=== PATIENT | male | born 1975 | race Caucasian/White ===

== ENCOUNTER 2017-04-15 14:08 | Observation (INO) ==
[2017-04-15] MEDS ORDERED: ZALEPLON 5 MG CAPSULE PO PRN (16:02)
[2017-04-15] MEDS ORDERED: ACETAMINOPHEN 325 MG TABLET PO PRN (16:02)
[2017-04-15] MEDS ORDERED: ONDANSETRON 4 MG/2 ML VIAL IV PRN (16:07)
--- NOTE | 2017-04-15 16:11 | Hospitalist History & Physical ---
<Todd Mishra - Last Filed: 04/15/17 16:02> Assessment and Plan - Time spent with patient Time spent with patient: Greater than 30 minutes (1) Acute pancreatitis Status: Resolved Assessment and plan: Patient presents with suspicion of recurrent acute pancreatitis. Will obtain blood work to include CBC, CMP, hemoglobin A1c, lipase, lipid panel and magnesium. Clear liquid diet. Analgesics including [place] and Demerol. IV fluids. Current Visit: No (2) History of pancreatic cancer Status: Acute Assessment and plan: Patient reports a history of pancreatic cancer in 2012 that is in remission. He notes this to be the cause of his pancreatitis flares. Patient is followed by oncologist at [facility] in [place]. Current Visit: No (3) Opiate dependence Status: Acute Assessment and plan: Patient has an extensive history of opioids on record. Will monitor dose administration. Current Visit: No (4) Anxiety Status: Acute Assessment and plan: Patient takes Zoloft regularly. 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 Current Visit: Yes History of Present Illness Chief complaint: pancreatitis History of present illness: Mr. Velazquez is a 41 year old white male with a past medical history significant for pancreatic carcinoma, cholecystectomy, recurrent pancreatitis who presents to day as a direct admit from Dr. Jose Van's office for further evaluation of pancreatitis. The patient reports that he has been experiencing nausea/vomiting and epigastric pain x1 week but has been putting off coming to the hospital. He was seen in Dr. Van's office this morning and reported that even the smell of food will make him sick to his stomach. The pain has been getting progressively worse, his appetite has dramatically decreased, and admission is inevitable. Per Dr. Van's note, the patient was just seen in his office last week and the liver enzymes were negative, however he did not check a lipase or amylase level at that time. On exam, the patient denies chest pain, cough, diarrhea, shortness of breath, fatigue, BRAUN, dizziness, palpitations , GERD, syncope and weakness. He tells us that he is allergic to morphine and dilaudid; instead opting for demerol for pain management. He is admitted to the hospital medicine service for further evaluation and treatment. Patient is a full code. Home medications have been reviewed and well be reconciled once confirmed in the system. Home Medications Medication Instructions Recorded Confirmed Type Lansoprazole 30 mg PO BEDTIME 05/12/16 04/15/17 History Dronabinol 5 mg PO BID PRN 07/21/16 04/15/17 History HYDROcodone/ACETAMIN 10-325 [[place] 1 tablet PO TID PRN 07/21/16 04/15/17 History 10-325] Pregabalin [Lyrica] 200 mg PO BID 07/21/16 04/15/17 History Sertraline [Zoloft] 100 mg PO BEDTIME 07/21/16 04/15/17 History Oxycodone HCl 30 mg PO Q6H PRN 07/22/16 04/15/17 History Promethazine Tab [Phenergan Tab] 25 mg PO TID PRN 07/22/16 04/15/17 History Celecoxib 200 mg PO BID 04/15/17 04/15/17 History Duloxetine HCl [Duloxetine] 60 mg PO BEDTIME 04/15/17 04/15/17 History Memantine HCl [Namenda] 10 mg PO BEDTIME 04/15/17 04/15/17 History Mexiletine [Mexitil] 150 mg PO BID PRN 04/15/17 04/15/17 History Allergies Allergy/AdvReac Type Severity Reaction Status Date / Time Hydromorphone [From Dilaudid] AdvReac Nausea Verified 01/16/16 16:35 morphine AdvReac Nausea Verified 01/16/16 16:35 Medical,Surgical,& Family Hx - Medical History Cardio: No history of: Hypertension Neurology: No history of: Seizures Endocrine: No history of: Diabetes Mellitus (IDDM), Diabetes Mellitus (NIDDM) Respiratory: No history of: COPD Gastrointestinal: History of: GERD, Pancreatitis, Gastrointestinal Cancer ( Pancreatic CA) Musculoskeletal: History of: Musculoskeletal Problems (left leg neuropathy) Other: History of: Cancer (pancreatic ca) - Surgical History HEENT Surgeries: Surgical HX of: Tonsilectomy & Adenoidectomy Abdominal Surgeries: Surgical HX of: Abdominal Surgery ([place] July 2013), Cholecystectomy (February 2013) - Family History Family History: Reports;: Family Cancer, Family Heart Disease - Social History Smoking Status: Never smoker Frequency of Alcohol Use: None Type of Drug Use: None Marital Status: Lives With:: Spouse Functional capacity: independent ambulation - Constitutional Constitutional: Present: anorexia. Absent: chills, fatigue, frequent falls, headache(s), weakness - EENT Eyes: Absent: blurry vision, loss of vision Ears: Absent: decreased hearing, ear pain Nose, mouth and throat: Absent: headache(s), hoarseness, sore throat, vertigo - Cardiovascular Cardiovascular: Absent: chest pain at rest, diaphoresis, dyspnea, dyspnea on exertion, edema, palpitations - Respiratory Respiratory: Absent: cough, dyspnea, dyspnea on exertion - Gastrointestinal Gastrointestinal: Present: abdominal pain, nausea, vomiting. Absent: change in bowel habits, constipation, diarrhea - Genitourinary Genitourinary: Absent: difficulty urinating, dysuria, hematuria - Neurological Neurological: Absent: abnormal gait, abnormal speech, confusion, dizziness, syncope - Psychiatric Psychiatric: Absent: anxiety, depression - Endocrine Endocrine: Absent: cold intolerance, heat intolerance - Hematologic/Lymphatic Hematologic/Lymphatic: Absent: easy bleeding, easy bruising Exam - Constitutional Exam: General appearance: normal weight, no acute distress - Head Head exam: Present: normocephalic, atraumatic - Eye Eye exam: Present: EOMI. Absent: conjunctival injection, nystagmus Pupils: Present: MARIO, normal accommodation - ENT ENT exam: Present: normal exam, normal external ear exam - Neck Neck exam: Present: normal inspection. Absent: lymphadenopathy, tenderness, thyromegaly - Respiratory Respiratory exam: Present: clear to auscultation bilaterally. Absent: rales, rhonchi, wheezes - Cardiovascular Cardiovascular exam: Present: regular rate and rhythm. Absent: carotid bruit, gallop, rubs - GI/Abdominal GI/Abdominal exam: Present: normal bowel sounds, soft, nontender to palpation. Absent: ascites, distended, mass - Extremities Exam Extremities exam: Present: normal inspection, normal capillary refill. Absent: edema - Back Exam Back exam: Absent: CVA tenderness (L), CVA tenderness (R) - Neurological Exam Neurological exam: Present: alert, oriented X3, CN II-XII intact, reflexes normal - Psychiatric Psychiatric exam: Present: normal affect, normal mood - Skin Skin exam: Present: normal color, warm, dry <White,Jaqui R - Last Filed: 04/15/17 18:04> Assessment and Plan (1) Acute pancreatitis Status: Resolved Current Visit: No (2) Opiate dependence Status: Acute Assessment and plan: Patient on alot of addictive medications. Chronic pancreatitis should not be treated with narcotics Current Visit: No History of Present Illness History of present illness: Mr. Velazquez is a 41 year old male. Patient seen and examined. Reports nausea and vomiting with dilaudid and morphine yet he take oxycodone as an outpatient. Reports can take demerol. Hasnt been in the hospital alot. Will give demerol even though I try to avoid it due to addiction potential. Patient does not look very uncomfortable Exam - Constitutional Vitals: Period Temp Pulse Resp BP Sys/[place] Pulse Ox Last 24 Hr 97.6 F 76 20 136/85 94 Results - Labs CBC & BMP: 04/15/17 16:35 04/15/17 16:35 Lab Results: I have reviewed the past 24 hour labs Labs: lipase 45 - Diagnostic Findings Procedure: Chest x-ray: report reviewed by me (nothing acute )
[2017-04-15] MEDS ORDERED: ENOXAPARIN 40 MG/0.4 ML SYRINGE SUBCUT SCH (16:30)
[2017-04-15 16:45] LABS: Basophils # 0.1 10*3/uL (0.0-0.2); Eosinophils # 0.3 10*3/uL (0.0-0.87); Eosinophils % 5.8 % (0.00-10.9); Hematocrit 38.4 VOL% (42.0-52.0); Hemoglobin 13.2 GM/DL (14.0-18.0); Immature Granulocytes % 0.2 %; Immature Granulocytes Absolute 0.01 #; Lymphocytes # 1.7 10*3/uL (1.4-4.0); Lymphocytes % 33.2 % (21.2-54.2); Mean Corpuscular HGB Conc 34.4 GM/DL (32-36); Mean Corpuscular Hemoglobin 31 PG (27-34); Mean Corpuscular Volume 90.8 FL (87-102); Mean Platelet Volume 10.4 FL (9.6-12.0); Monocytes # 0.5 10*3/uL (0.11-0.8); Monocytes % 8.9 % (1.7-12.7); Neutrophils # 2.6 10*3/uL (1.4-7.4); Neutrophils % 50.9 % (38.7-73.9); Platelet Count 112 T/CUMM (130-400); Red Blood Count 4.23 MC/CUMM (3.8-5.5); Red Cell Distribution Width 12.9 % (9.3-17.3); White Blood Count 5.2 T/CUMM (4-12)
[2017-04-15] MEDS: MEPERIDINE 50 MG/1 ML VIAL IV PRN ×2 (16:49→20:19)
[2017-04-15] MEDS: SODIUM CHLORIDE 0.9% 1,000 ML IV SCH ×2 (16:54→23:58)
[2017-04-15 17:05] LABS: Albumin 3.5 G/DL (3.4-5.0); Bilirubin,Total 0.4 MG/DL (0.2-1.0); Calcium 8.6 MG/DL (8.5-10.1); Magnesium 2.1 MG/DL (1.8-2.4); Osmolality,Calculated 284.1 MOS/KG (273-304); Potassium 4.1 MMOL/L (3.5-5.1)
--- NOTE | 2017-04-15 17:44 | XRay Report ---
History: Shortness of breath Date: 04/15/2017 Study: Chest x-ray PA and lateral Comparison exam: August 28, 2016 chest x-ray The cardiomediastinal silhouette and pulmonary vasculature are unchanged. The lungs and pleural spaces are clear. There is no pleural effusion. The osseous structures are similar. Surgical clips overlie the upper central and right upper abdomen. Impression: No acute cardiomegaly process. No significant interval change from the previous study PROCEDURE INTERPRETED AT [facility] DEPARTMENT OF RADIOLOGY Final Report Signed by: Dr. Isabel Rangel
[2017-04-15] MEDS: PREGABALIN 100 MG CAPSULE PO SCH (20:19)
[2017-04-15] MEDS: SERTRALINE 100 MG TABLET PO SCH (20:19)
[2017-04-15 20:24] LABS: Apearance,Urine CLEAR (Clear); Bilirubin,Urine Small mg/dL (Negative); Blood, Urine Negative (Negative); Glucose,Urine (UA) Negative (Negative); Hyaline Casts,Urine 10 /LPF (0-3); Ketones,Urine 5 mg/dL (Negative); Mucus,Urine Many /LPF (Occasional); Nitrite,Urine Negative (Negative); Protein,Urine Negative; RBC,Urine 1 /HPF (0-4); Squamous Epithelial Cell,Urine Occasional /HPF (0-10); Urine Color Dark yellow (Yellow); Urine Specific Gravity 1.029 (1.001-1.035); WBC,Urine <1 /HPF (0-6)
[2017-04-15] MEDS ORDERED: PANTOPRAZOLE 40 MG TABLET PO SCH (21:00)
[2017-04-15 22:11] LABS: Barbiturates Screen,Urine Negative (Negative); Benzodiazepines Screen,Urine Negative (Negative); Cannabinoid Screen,Urine Positive (Negative); Opiate Screen,Urine Positive (Negative); Phencyclidine Screen,Urine Negative (Negative)
[2017-04-16] MEDS: MEPERIDINE 50 MG/1 ML VIAL IV PRN ×7 (00:10→21:52)
[2017-04-16 03:47] LABS: Risk Ratio 4.4; VLDL CHOLESTEROL 30.6 MG/DL
[2017-04-16] MEDS: SODIUM CHLORIDE 0.9% 1,000 ML IV SCH ×6 (04:43→23:20)
[2017-04-16] MEDS: PREGABALIN 100 MG CAPSULE PO SCH ×2 (09:49→20:50)
--- NOTE | 2017-04-16 13:53 | Hospitalist Progress Note ---
Assessment and Plan (1) Acute pancreatitis Status: Resolved Assessment and plan: cont demerol, imformed him of UDS Current Visit: No (2) Opiate dependence Status: Acute Assessment and plan: would recommend wean off Current Visit: No (3) Thrombocytopenia Status: Acute Assessment and plan: PTT, PT, Dimer, Fibrinogen, US liver Current Visit: Yes Hospitalist: Subjective Interval history: Patient feels okay today. He wanted to increase his Demerol to every 2 hours but I refused. Patient has [place] that will help bridge the gap. Patient also had a positive drug screen for opiates, amphetamines and marijuana Exam - Constitutional Vitals: Period Temp Pulse Resp BP Sys/[place] Pulse Ox Last 24 Hr 97.3 F-98.4 F 60-76 18-20 105-150/73-93 94-99 Exam: Heart Rate-[RRR] Lungs-[CTAB] GI-[+bs soft, tender] Ext-[no edema] Neuro [Motor 5/5], [alert and oriented times 3] psych [normal mood and affect] General [no acute distress] Results - Labs CBC & BMP: 04/15/17 16:35 04/15/17 16:35 Lab Results: I have reviewed the past 24 hour labs - Diagnostic Findings Procedure: Chest x-ray: report reviewed by me (negative)
[2017-04-16] MEDS: FAMOTIDINE 20 MG TABLET PO SCH ×2 (14:15→20:51)
[2017-04-16 15:02] LABS: D-Dimer <= 0.5 MG/L FEU; Fibrinogen Quant Value 193 MG% (200-400); PT Patient Result 10.7 SECS; Partial Thromboplastin Time 25.4 SECS (0-40)
[2017-04-16] MEDS: SERTRALINE 100 MG TABLET PO SCH (20:51)
[2017-04-17] MEDS: MEPERIDINE 50 MG/1 ML VIAL IV PRN ×5 (04:00→20:53)
[2017-04-17] MEDS: SODIUM CHLORIDE 0.9% 1,000 ML IV SCH ×4 (05:49→20:54)
[2017-04-17 06:35] LABS: Basophils % 0.7 % (0.0-0.8); Eosinophils # 0.3 10*3/uL (0.0-0.87); Hematocrit 37.7 VOL% (42.0-52.0); Hemoglobin 12.6 GM/DL (14.0-18.0); Immature Granulocytes % 0.2 %; Immature Granulocytes Absolute 0.01 #; Lymphocytes # 1.4 10*3/uL (1.4-4.0); Lymphocytes % 32.4 % (21.2-54.2); Mean Corpuscular HGB Conc 33.4 GM/DL (32-36); Mean Corpuscular Hemoglobin 31 PG (27-34); Mean Corpuscular Volume 92.2 FL (87-102); Mean Platelet Volume 11.3 FL (9.6-12.0); Monocytes # 0.4 10*3/uL (0.11-0.8); Monocytes % 9.6 % (1.7-12.7); Neutrophils # 2.1 10*3/uL (1.4-7.4); Neutrophils % 51.1 % (38.7-73.9); Red Blood Count 4.09 MC/CUMM (3.8-5.5); Red Cell Distribution Width 13.1 % (9.3-17.3); White Blood Count 4.2 T/CUMM (4-12)
[2017-04-17 06:43] LABS: Platelet Count 97 T/CUMM (130-400)
[2017-04-17 07:09] LABS: Anisocytosis 1+; Platelet Estimate Decreased
--- NOTE | 2017-04-17 07:54 | Ultrasound Report ---
US liver Indication: Cirrhosis Comparison: None. Technique: Using transcutaneous probe, ultrasound imaging of the right upper quadrant was performed. Ultrasound images were captured and stored. Imaged structures include the liver, gallbladder, pancreas, right kidney, aorta, and inferior vena cava. Findings: Pancreas is not well-visualized secondary to bowel gas. The small portion of the visualized pancreatic body demonstrates no mass or ductal dilatation. The liver measures approximately 14 cm in craniocaudal dimension. Echotexture of the hepatic parenchyma is diffusely increased compared to the right renal cortex. Color flow is present within the interrogated portal venous segments. Spectral flow within the main portal vein is in the correct direction and has a somewhat pulsatile waveform. Color flow is present within the interrogated hepatic venous segments. Common bile duct is enlarged measuring 7 mm. Echogenic foci with posterior shadowing in the region of the gallbladder fossa may reflect surgical clips. Gallbladder surgically absent. Right kidney measures 10.8 cm in craniocaudal dimension. The aorta and inferior vena cava are not identified secondary to bowel gas. Impression: 1. There is no evidence of focal hepatic mass or findings to suggest portal venous hypertension. Minimally pulsatile waveform is present within the main portal vein. 04/17/2017 7:47 AM PROCEDURE INTERPRETED AT [facility] DEPARTMENT OF RADIOLOGY Final Report Signed by: Dr. Mariano Rahman
[2017-04-17] MEDS: PREGABALIN 100 MG CAPSULE PO SCH ×2 (08:14→20:53)
[2017-04-17] MEDS: FAMOTIDINE 20 MG TABLET PO SCH ×2 (08:15→20:53)
[2017-04-17] MEDS ORDERED: oxyCODONE IR 5 MG TABLET PO PRN (10:09)
[2017-04-17] MEDS ORDERED: MEXILETINE 150 MG CAPSULE PO PRN (10:09)
--- NOTE | 2017-04-17 13:47 | Hospitalist Progress Note ---
Assessment and Plan (1) Acute pancreatitis Status: Resolved Assessment and plan: cont demerol,advance diet to full liquids Current Visit: No (2) Opiate dependence Status: Acute Assessment and plan: restarted oxycodone Current Visit: No (3) Thrombocytopenia Status: Acute Assessment and plan: labs normal, plt down to 97 on cbc from today, us of liver okay Current Visit: Yes Hospitalist: Subjective Interval history: advance to full liquids, UDS repeat, restart namenda given to him for help with pain, restart oxycodone Exam - Constitutional Vitals: Period Temp Pulse Resp BP Sys/[place] Pulse Ox Last 24 Hr 97.4 F-98.4 F 58-75 18-20 111-132/65-86 95-99 Exam: Heart Rate-[RRR] Lungs-[CTAB] GI-[+bs soft, epigastric tender] Ext-[no edema] Neuro [Motor 5/5], [alert and oriented times 3] psych [normal mood and affect] General [no acute distress] Results - Labs CBC & BMP: 04/17/17 05:54 04/15/17 16:35 Lab Results: I have reviewed the past 24 hour labs
[2017-04-17 16:09] LABS: Barbiturates Screen,Urine Negative (Negative); Benzodiazepines Screen,Urine Negative (Negative); Cannabinoid Screen,Urine Negative (Negative); Opiate Screen,Urine Positive (Negative); Phencyclidine Screen,Urine Negative (Negative)
[2017-04-17] MEDS: SERTRALINE 100 MG TABLET PO SCH (20:52)
[2017-04-17] MEDS ORDERED: DULoxetine 30 MG CAPSULE PO SCH (21:00)
[2017-04-17] MEDS ORDERED: MEMANTINE 10 MG TABLET PO SCH (21:00)
[2017-04-18] MEDS: MEPERIDINE 50 MG/1 ML VIAL IV PRN ×3 (01:02→08:53)
[2017-04-18] MEDS: SODIUM CHLORIDE 0.9% 1,000 ML IV SCH (04:07)
[2017-04-18] MEDS: PREGABALIN 100 MG CAPSULE PO SCH (08:53)
[2017-04-18] MEDS: FAMOTIDINE 20 MG TABLET PO SCH (08:53)
--- NOTE | 2017-04-18 09:24 | Discharge Summary ---
<Todd Mishra - Last Filed: 04/18/17 09:14> Hospital Course - Hospital Course Hospital Course: Mr. Velazquez is a 41 year old white male with a past medical history significant for pancreatic carcinoma, cholecystectomy, recurrent pancreatitis who presented on 04/15/17 as a direct admit from Dr. Jose Van's office for further evaluation of pancreatitis. The patient reported that he had been experiencing nausea/vomiting and epigastric pain x1 week. He was admitted to the hospital medicine service and received demerol every 3 hours. His lipase was low. We restarted his home pain meds when he didnt receive relief. His platelets were low but no evidence of cirrhosis was found. We have advanced his diet and he will be discharged home to see his pain specialist Dr. Finnegan and Dr. Van. Diagnosis - Discharge Diagnosis (1) History of pancreatic cancer Status: Acute (2) Opiate dependence Status: Acute (3) Anxiety Status: Acute (4) Peripheral neuropathy due to chemotherapy Status: Acute Discharge Plan - Discharge Data Disposition: Disch To Home/Self Care - Discharge Medications Continue Lansoprazole 30 mg PO BEDTIME Dronabinol 5 mg PO BID PRN PRN Reason: Nausea Sertraline [Zoloft] 100 mg PO BEDTIME Pregabalin [Lyrica] 200 mg PO BID HYDROcodone/ACETAMIN 10-325 [[place] 10-325] 1 tablet PO TID PRN PRN Reason: Pain Oxycodone HCl 30 mg PO Q6H PRN PRN Reason: Pain Promethazine Tab [Phenergan Tab] 25 mg PO TID PRN PRN Reason: Nausea Memantine HCl [Namenda] 10 mg PO BEDTIME Celecoxib 200 mg PO BID Mexiletine [Mexitil] 150 mg PO BID PRN PRN Reason: Pain Moderate To Severe (4-10) Duloxetine HCl [Duloxetine] 60 mg PO BEDTIME - Follow Up or Referral Follow Up: Jose Van MD [Primary Care Provider] - 2 Weeks Dennys Finnegan MD [Physician] - 1 Week (I believe this is his pain doctor) - Forms/Instructions Exam - Constitutional Vitals: Period Temp Pulse Resp BP Sys/[place] Pulse Ox Last 24 Hr 97.1 F-98.0 F 55-77 18-20 115-136/70-96 94-99 Discharge Results Labs on day of discharge: Labs from last 24 hours 04/17/17 15:31 Urine Opiates Screen Positive H Ur Barbiturates Screen Negative Ur Phencyclidine Scrn Negative U Amphetamine/Methamph Negative U Benzodiazepines Scrn Negative U Cocaine Metab Screen Negative U Cannabinoids Screen Negative DS: Provider Date of admission: 04/15/17 15:30 Primary care physician: Jose Van MD Attending physician on admission: Jaqui Yarbrough MD Discharging clinician: Todd BALL Expected date of discharge: 04/18/17 <Jaqui Yarbrough - Last Filed: 04/18/17 11:17> Hospital Course - Time spent with patient Time with patient DS: Less than 30 minutes (25 min) Diagnosis - Discharge Diagnosis (1) Acute pancreatitis Status: Resolved (2) Opiate dependence Status: Acute (3) Thrombocytopenia Status: Acute Discharge Plan - Discharge Data Condition at Discharge: Stable Discharge Diet: other (soft ) Activity: resume usual activities as tolerated Hygiene: no restrictions Weight Bearing at Discharge: full weight bearing Exam - Constitutional General appearance: normal weight, no acute distress - Respiratory Respiratory exam: Present: clear to auscultation bilaterally. Absent: rhonchi, wheezes - Cardiovascular Cardiovascular exam: Present: regular rate and rhythm. Absent: systolic murmur - GI/Abdominal GI/Abdominal exam: Present: normal bowel sounds, soft. Absent: tenderness - Extremities Exam Extremities exam: Present: normal inspection, normal capillary refill - Neurological Exam Neurological exam: Present: alert, oriented X3 - Psychiatric Psychiatric exam: Present: normal affect, normal mood
[2017-04-18 11:33] VITALS: BP 121/76
== END 2017-04-18 12:20 | disposition home or self-care (01) ==
LOC: N.5E 15:30 → INTOOBSV 15:30
PROVIDERS: ADMIT Internal Medicine; ATTEND Internal Medicine

== ENCOUNTER 2017-08-16 00:32 | Inpatient (IN) ==
[2017-08-16] MEDS ORDERED: ONDANSETRON 4 MG/2 ML VIAL IV STA (00:51)
[2017-08-16] MEDS ORDERED: fentaNYL 100 MCG/2 ML VIAL IV STA ×2 (00:51→01:54)
[2017-08-16] MEDS ORDERED: SODIUM CHLORIDE 0.9% 1,000 ML IV STA (01:03)
[2017-08-16] MEDS ORDERED: ONDANSETRON 4 MG/2 ML VIAL ONE (01:11)
[2017-08-16] MEDS ORDERED: fentaNYL 100 MCG/2 ML VIAL ONE (01:11)
[2017-08-16 01:13] LABS: Basophils # 0.1 10*3/uL (0.0-0.2); Basophils % 0.8 % (0.0-0.8); Eosinophils # 0.3 10*3/uL (0.0-0.87); Eosinophils % 4.2 % (0.00-10.9); Hematocrit 40.5 VOL% (42.0-52.0); Hemoglobin 13.8 GM/DL (14.0-18.0); Immature Granulocytes % 0.3 %; Immature Granulocytes Absolute 0.02 #; Lymphocytes % 14.1 % (21.2-54.2); Mean Corpuscular HGB Conc 34.1 GM/DL (32-36); Mean Corpuscular Hemoglobin 30 PG (27-34); Mean Corpuscular Volume 87.7 FL (87-102); Mean Platelet Volume 10.7 FL (9.6-12.0); Monocytes # 0.5 10*3/uL (0.11-0.8); Monocytes % 6.7 % (1.7-12.7); Neutrophils # 5.3 10*3/uL (1.4-7.4); Neutrophils % 73.9 % (38.7-73.9); Platelet Count 116 T/CUMM (130-400); Red Blood Count 4.62 MC/CUMM (3.8-5.5); Red Cell Distribution Width 12.9 % (9.3-17.3); White Blood Count 7.2 T/CUMM (4-12)
[2017-08-16 01:31] LABS: Apearance,Urine CLEAR (Clear); Bilirubin,Urine Negative (Negative); Blood, Urine Negative (Negative); Glucose,Urine (UA) 150 mg/dL (Negative); Ketones,Urine 5 mg/dL (Negative); Mucus,Urine Few /LPF (Occasional); Nitrite,Urine Negative (Negative); Protein,Urine Negative; RBC,Urine <1 /HPF (0-4); Urine Color Yellow (Yellow); Urine Specific Gravity 1.019 (1.001-1.035); Urine Urobilinogen < 2.0 EU/DL (0.2-1.0); WBC,Urine 1 /HPF (0-6)
[2017-08-16 01:56] LABS: Albumin 3.7 G/DL (3.4-5.0); Bilirubin,Total 0.6 MG/DL (0.2-1.0); Calcium 8.4 MG/DL (8.5-10.1); Osmolality,Calculated 291.1 MOS/KG (273-304); Potassium 4.3 MMOL/L (3.5-5.1); Total Protein 6.4 G/DL (6.4-8.3)
[2017-08-16] MEDS ORDERED: DRONABINOL 2.5 MG CAPSULE PO PRN (03:37)
[2017-08-16] MEDS ORDERED: MEXILETINE 150 MG CAPSULE PO PRN (03:37)
[2017-08-16] MEDS ORDERED: PROMETHAZINE INJ 12.5 MG in SODIUM CHLORIDE 0.9% 50 ML IV PRN (03:37)
[2017-08-16] MEDS ORDERED: PANTOPRAZOLE 40 MG VIAL IV STA (04:21)
[2017-08-16] MEDS: DEXTROSE 5% NACL 0.9% 1,000 ML IV SCH ×3 (04:26→23:41)
[2017-08-16] MEDS ORDERED: fentaNYL 100 MCG/2 ML VIAL IV PRN (04:54)
[2017-08-16] MEDS: ENOXAPARIN 40 MG/0.4 ML SYRINGE SUBCUT SCH (08:43)
[2017-08-16] MEDS ORDERED: PREGABALIN 100 MG CAPSULE PO SCH (09:00)
[2017-08-16] MEDS ORDERED: ONDANSETRON 4 MG/2 ML VIAL IV PRN (10:38)
[2017-08-16] MEDS ORDERED: PROMETHAZINE 25 MG TABLET PO PRN (10:39)
[2017-08-16] MEDS ORDERED: oxyCODONE IR 5 MG TABLET PO PRN (10:39)
[2017-08-16] MEDS: MEPERIDINE 50 MG/1 ML VIAL IV PRN ×5 (10:46→23:37)
[2017-08-16] MEDS: PANTOPRAZOLE 40 MG TABLET PO SCH (20:41)
[2017-08-16] MEDS: SERTRALINE 100 MG TABLET PO SCH (20:41)
[2017-08-16] MEDS ORDERED: MEMANTINE 5 MG TABLET PO SCH (21:00)
[2017-08-16] MEDS ORDERED: DULoxetine 30 MG CAPSULE PO SCH (21:00)
[2017-08-17] MEDS: MEPERIDINE 50 MG/1 ML VIAL IV PRN ×5 (02:53→21:25)
[2017-08-17 06:21] LABS: Eosinophils # 0.2 10*3/uL (0.0-0.87); Eosinophils % 7.8 % (0.00-10.9); Hematocrit 36.1 VOL% (42.0-52.0); Hemoglobin 12.4 GM/DL (14.0-18.0); Lymphocytes # 1.1 10*3/uL (1.4-4.0); Mean Corpuscular HGB Conc 34.3 GM/DL (32-36); Mean Corpuscular Hemoglobin 30 PG (27-34); Mean Platelet Volume 10.9 FL (9.6-12.0); Monocytes # 0.3 10*3/uL (0.11-0.8); Monocytes % 9.7 % (1.7-12.7); Neutrophils # 1.4 10*3/uL (1.4-7.4); Neutrophils % 46.5 % (38.7-73.9); Red Cell Distribution Width 12.7 % (9.3-17.3); White Blood Count 3.1 T/CUMM (4-12)
[2017-08-17 06:40] LABS: Platelet Count 95 T/CUMM (130-400)
[2017-08-17 06:54] LABS: Albumin 3.1 G/DL (3.4-5.0); Bilirubin,Total 0.8 MG/DL (0.2-1.0); Total Protein 5.8 G/DL (6.4-8.3)
[2017-08-17 07:05] LABS: Hypochromasia 1+
[2017-08-17] MEDS: ENOXAPARIN 40 MG/0.4 ML SYRINGE SUBCUT SCH (08:40)
[2017-08-17] MEDS: DEXTROSE 5% NACL 0.9% 1,000 ML IV SCH ×3 (09:44→21:22)
[2017-08-17] MEDS: SERTRALINE 100 MG TABLET PO SCH (21:20)
[2017-08-17] MEDS: PANTOPRAZOLE 40 MG TABLET PO SCH (21:20)
[2017-08-18 09:54] LABS: Calcium 8.4 MG/DL (8.5-10.1); Osmolality,Calculated 286.7 MOS/KG (273-304); Potassium 3.8 MMOL/L (3.5-5.1)
[2017-08-18] MEDS: MEPERIDINE 50 MG/1 ML VIAL IV PRN (09:55)
[2017-08-18 10:00] LABS: Basophils # 0.1 10*3/uL (0.0-0.2); Basophils % 1.2 % (0.0-0.8); Eosinophils # 0.2 10*3/uL (0.0-0.87); Eosinophils % 5.7 % (0.00-10.9); Hematocrit 36.3 VOL% (42.0-52.0); Hemoglobin 12.6 GM/DL (14.0-18.0); Immature Granulocytes % 0.5 %; Immature Granulocytes Absolute 0.02 #; Lymphocytes # 1.6 10*3/uL (1.4-4.0); Lymphocytes % 38.8 % (21.2-54.2); Mean Corpuscular HGB Conc 34.7 GM/DL (32-36); Mean Corpuscular Hemoglobin 30 PG (27-34); Mean Corpuscular Volume 87.1 FL (87-102); Monocytes # 0.4 10*3/uL (0.11-0.8); Monocytes % 10.4 % (1.7-12.7); Neutrophils # 1.8 10*3/uL (1.4-7.4); Neutrophils % 43.4 % (38.7-73.9); Platelet Count 105 T/CUMM (130-400); Red Blood Count 4.17 MC/CUMM (3.8-5.5); Red Cell Distribution Width 12.6 % (9.3-17.3); White Blood Count 4.1 T/CUMM (4-12)
[2017-08-18] MEDS: DEXTROSE 5% NACL 0.9% 1,000 ML IV SCH (10:28)
[2017-08-18 12:24] VITALS: BP 129/78
== END 2017-08-18 15:15 | disposition home or self-care (01) | DRG 439 ==
LOC: N.ED 00:32 → SUATTDRO 03:13 → N.EDINP 03:13 → N.5E 04:05
PROVIDERS: ADMIT Internal Medicine; ATTEND Internal Medicine

== ENCOUNTER 2018-03-19 19:39 | Inpatient (IN) ==
[2018-03-19] MEDS ORDERED: SODIUM CHLORIDE 0.9% 1,000 ML IV STA (21:22)
[2018-03-19] MEDS ORDERED: PROMETHAZINE 25 MG/1 ML VIAL IM STA (21:24)
[2018-03-19] MEDS ORDERED: MEPERIDINE 50 MG/1 ML VIAL IM STA ×3 (21:24→23:49)
[2018-03-19 21:32] LABS: Basophils # 0.1 10*3/uL (0.0-0.2); Basophils % 0.6 % (0.0-0.8); Eosinophils # 0.5 10*3/uL (0.0-0.87); Eosinophils % 4.8 % (0.00-10.9); Hematocrit 42.7 VOL% (42.0-52.0); Hemoglobin 14.3 GM/DL (14.0-18.0); Immature Granulocytes % 0.4 %; Immature Granulocytes Absolute 0.04 #; Lymphocytes # 1.7 10*3/uL (1.4-4.0); Lymphocytes % 17.7 % (21.2-54.2); Mean Corpuscular HGB Conc 33.5 GM/DL (32-36); Mean Corpuscular Hemoglobin 30 PG (27-34); Mean Corpuscular Volume 88.2 FL (87-102); Mean Platelet Volume 10.5 FL (9.6-12.0); Monocytes # 0.9 10*3/uL (0.11-0.8); Monocytes % 9.4 % (1.7-12.7); Neutrophils # 6.4 10*3/uL (1.4-7.4); Neutrophils % 67.1 % (38.7-73.9); Platelet Count 146 T/CUMM (130-400); Red Blood Count 4.84 MC/CUMM (3.8-5.5); Red Cell Distribution Width 13.2 % (9.3-17.3); White Blood Count 9.6 T/CUMM (4-12)
[2018-03-19 21:44] LABS: Calcium 8.8 MG/DL (8.5-10.1); Osmolality,Calculated 281.5 MOS/KG (273-304); Potassium 4.2 MMOL/L (3.5-5.1)
[2018-03-20 00:35] LABS: Apearance,Urine CLEAR (Clear); Bilirubin,Urine Negative (Negative); Blood, Urine Negative (Negative); Glucose,Urine (UA) 50 mg/dL (Negative); Ketones,Urine Negative (Negative); Mucus,Urine Occasional /LPF (Occasional); Nitrite,Urine Negative (Negative); Protein,Urine Negative; Urine Color Yellow (Yellow); Urine Specific Gravity 1.017 (1.001-1.035); WBC,Urine <1 /HPF (0-6)
[2018-03-20] MEDS ORDERED: PROMETHAZINE 25 MG/1 ML VIAL IM PRN (00:48)
[2018-03-20] MEDS ORDERED: DRONABINOL 2.5 MG CAPSULE PO PRN (00:51)
[2018-03-20] MEDS ORDERED: OXYCODONE HCL 30 MG PO PRN (00:51)
[2018-03-20] MEDS ORDERED: oxyCODONE IR 5 MG TABLET PO PRN (00:51)
[2018-03-20] MEDS ORDERED: LORazepam 1 MG TABLET PO PRN (00:51)
[2018-03-20] MEDS ORDERED: KETOROLAC 30 MG/1 ML VIAL IV PRN (01:19)
[2018-03-20] MEDS ORDERED: MEPERIDINE 50 MG/1 ML VIAL IM STA (01:53)
[2018-03-20] MEDS: SODIUM CHLORIDE 0.9% 1,000 ML IV SCH ×3 (02:06→19:13)
[2018-03-20] MEDS: MEPERIDINE 50 MG/1 ML VIAL IV PRN ×5 (06:12→23:16)
[2018-03-20 06:47] LABS: Basophils % 0.6 % (0.0-0.8); Eosinophils # 0.1 10*3/uL (0.0-0.87); Eosinophils % 1.1 % (0.00-10.9); Hematocrit 38.4 VOL% (42.0-52.0); Hemoglobin 13.3 GM/DL (14.0-18.0); Immature Granulocytes % 0.2 %; Immature Granulocytes Absolute 0.01 #; Lymphocytes # 1.1 10*3/uL (1.4-4.0); Lymphocytes % 17.5 % (21.2-54.2); Mean Corpuscular HGB Conc 34.6 GM/DL (32-36); Mean Corpuscular Hemoglobin 30 PG (27-34); Mean Corpuscular Volume 86.1 FL (87-102); Mean Platelet Volume 10.7 FL (9.6-12.0); Monocytes # 0.5 10*3/uL (0.11-0.8); Monocytes % 8.5 % (1.7-12.7); Neutrophils # 4.5 10*3/uL (1.4-7.4); Neutrophils % 72.1 % (38.7-73.9); Platelet Count 119 T/CUMM (130-400); Red Blood Count 4.46 MC/CUMM (3.8-5.5); White Blood Count 6.2 T/CUMM (4-12)
[2018-03-20 07:19] LABS: Albumin 3.1 G/DL (3.4-5.0); Bilirubin,Total 0.7 MG/DL (0.2-1.0); Osmolality,Calculated 281.4 MOS/KG (273-304); Potassium 3.8 MMOL/L (3.5-5.1); Risk Ratio 4.97; Total Protein 6.2 G/DL (6.4-8.3); VLDL CHOLESTEROL 25.8 MG/DL
[2018-03-20] MEDS: PANTOPRAZOLE 40 MG VIAL IV SCH (10:57)
[2018-03-20] MEDS: ENOXAPARIN 40 MG/0.4 ML SYRINGE SUBCUT SCH (10:57)
[2018-03-20] MEDS: SERTRALINE 100 MG TABLET PO SCH (20:21)
[2018-03-21] MEDS: MEPERIDINE 50 MG/1 ML VIAL IV PRN ×5 (03:06→20:18)
[2018-03-21] MEDS: SODIUM CHLORIDE 0.9% 1,000 ML IV SCH ×2 (03:07→12:13)
[2018-03-21 07:27] LABS: Basophils % 0.7 % (0.0-0.8); Eosinophils # 0.1 10*3/uL (0.0-0.87); Eosinophils % 3.2 % (0.00-10.9); Hematocrit 39.6 VOL% (42.0-52.0); Immature Granulocytes % 0.2 %; Immature Granulocytes Absolute 0.01 #; Mean Corpuscular HGB Conc 32.8 GM/DL (32-36); Mean Corpuscular Hemoglobin 29 PG (27-34); Mean Platelet Volume 10.3 FL (9.6-12.0); Monocytes # 0.4 10*3/uL (0.11-0.8); Monocytes % 8.3 % (1.7-12.7); Neutrophils # 2.8 10*3/uL (1.4-7.4); Neutrophils % 65.6 % (38.7-73.9); Platelet Count 111 T/CUMM (130-400); Red Blood Count 4.45 MC/CUMM (3.8-5.5); Red Cell Distribution Width 12.9 % (9.3-17.3); White Blood Count 4.3 T/CUMM (4-12)
[2018-03-21 07:55] LABS: Calcium 8.8 MG/DL (8.5-10.1); Potassium 3.9 MMOL/L (3.5-5.1)
[2018-03-21] MEDS: PANTOPRAZOLE 40 MG VIAL IV SCH (09:50)
[2018-03-21] MEDS: ENOXAPARIN 40 MG/0.4 ML SYRINGE SUBCUT SCH (09:50)
[2018-03-21] MEDS: SERTRALINE 100 MG TABLET PO SCH (20:19)
[2018-03-22] MEDS: MEPERIDINE 50 MG/1 ML VIAL IV PRN ×3 (00:26→09:04)
[2018-03-22] MEDS: SODIUM CHLORIDE 0.9% 1,000 ML IV SCH ×2 (00:27→09:00)
[2018-03-22 05:29] LABS: Basophils % 0.5 % (0.0-0.8); Eosinophils # 0.1 10*3/uL (0.0-0.87); Eosinophils % 2.8 % (0.00-10.9); Hematocrit 33.8 VOL% (42.0-52.0); Hemoglobin 12.1 GM/DL (14.0-18.0); Immature Granulocytes % 0.5 %; Immature Granulocytes Absolute 0.02 #; Lymphocytes # 1.2 10*3/uL (1.4-4.0); Lymphocytes % 30.1 % (21.2-54.2); Mean Corpuscular HGB Conc 35.8 GM/DL (32-36); Mean Corpuscular Hemoglobin 31 PG (27-34); Mean Corpuscular Volume 85.8 FL (87-102); Mean Platelet Volume 10.6 FL (9.6-12.0); Monocytes # 0.3 10*3/uL (0.11-0.8); Monocytes % 8.7 % (1.7-12.7); NRBC # 0.02 10*3/uL; Neutrophils # 2.3 10*3/uL (1.4-7.4); Neutrophils % 57.4 % (38.7-73.9); Platelet Count 110 T/CUMM (130-400); Red Blood Count 3.94 MC/CUMM (3.8-5.5); Red Cell Distribution Width 13.2 % (9.3-17.3); White Blood Count 3.9 T/CUMM (4-12)
[2018-03-22 05:58] LABS: Calcium 8.1 MG/DL (8.5-10.1); Osmolality,Calculated 289.6 MOS/KG (273-304); Potassium 3.7 MMOL/L (3.5-5.1)
[2018-03-22 07:42] VITALS: BP 131/79
[2018-03-22] MEDS: PANTOPRAZOLE 40 MG VIAL IV SCH (09:03)
[2018-03-22] MEDS: ENOXAPARIN 40 MG/0.4 ML SYRINGE SUBCUT SCH (09:03)
== END 2018-03-22 11:57 | disposition home or self-care (01) | DRG 440 ==
LOC: N.ED 19:39 → SUATTDRO 03-20 00:46 → N.EDINP 03-20 00:46 → N.5E 03-20 02:16
PROVIDERS: ADMIT Internal Medicine; ATTEND Internal Medicine Infectious Disease

== ENCOUNTER 2018-10-04 16:39 | Inpatient (IN) ==
[2018-10-04] MEDS ORDERED: SODIUM CHLORIDE 0.9% 1,000 ML IV STA (17:09)
[2018-10-04] MEDS ORDERED: ONDANSETRON 4 MG/2 ML VIAL IV STA (17:10)
[2018-10-04] MEDS ORDERED: MEPERIDINE 50 MG/1 ML VIAL IV STA (17:10)
[2018-10-04] MEDS ORDERED: MEPERIDINE 25 MG/1 ML VIAL ONE ×3 (17:19→19:22)
[2018-10-04] MEDS ORDERED: ONDANSETRON 4 MG/2 ML VIAL ONE (17:19)
[2018-10-04 17:51] LABS: Basophils % 0.6 % (0.0-0.8); Eosinophils # 0.2 10*3/uL (0.0-0.87); Eosinophils % 2.5 % (0.00-10.9); Hematocrit 41.5 VOL% (42.0-52.0); Hemoglobin 13.3 GM/DL (14.0-18.0); Immature Granulocytes % 0.3 %; Immature Granulocytes Absolute 0.02 #; Lymphocytes # 1.2 10*3/uL (1.4-4.0); Lymphocytes % 16.8 % (21.2-54.2); Mean Corpuscular Hemoglobin 29 PG (27-34); Mean Corpuscular Volume 90.6 FL (87-102); Mean Platelet Volume 10.2 FL (9.6-12.0); Monocytes # 0.7 10*3/uL (0.11-0.8); Monocytes % 10.2 % (1.7-12.7); Neutrophils # 5.1 10*3/uL (1.4-7.4); Neutrophils % 69.6 % (38.7-73.9); Platelet Count 100 T/CUMM (130-400); Red Blood Count 4.58 MC/CUMM (3.8-5.5); Red Cell Distribution Width 13.5 % (9.3-17.3); White Blood Count 7.3 T/CUMM (4-12)
[2018-10-04 18:11] LABS: Alanine Aminotransferase 40 U/L (16-61); Albumin 3.6 G/DL (3.4-5.0); Alkaline Phosphatase 70 U/L (45-117); Amylase 109 U/L (25-115); Aspartate Amino Transferase 18 U/L (0-37); Bilirubin,Total < 0.39 MG/DL (0.2-1.0); Blood Urea Nitrogen 17 MG/DL (7-18); Calcium 8.4 MG/DL (8.5-10.1); Glucose 99 MG/DL (74-106); Osmolality,Calculated 280.4 MOS/KG (273-304); Potassium 4.2 MMOL/L (3.5-5.1); Sodium 140 MMOL/L (136-145); Total Protein 6.7 G/DL (6.4-8.3)
[2018-10-04] MEDS ORDERED: MEPERIDINE 25 MG/1 ML VIAL IV STA ×2 (18:25→19:19)
[2018-10-04] MEDS ORDERED: ONDANSETRON 4 MG/2 ML VIAL IV PRN (18:47)
[2018-10-04] MEDS ORDERED: PROMETHAZINE 25 MG/1 ML VIAL IM PRN (19:14)
[2018-10-04] MEDS: MEPERIDINE 50 MG/1 ML VIAL IV PRN (21:28)
[2018-10-04] MEDS: HEPARIN 5,000 UNIT/1 ML VIAL SUBCUT SCH (21:29)
[2018-10-04] MEDS: SODIUM CHLORIDE 0.9% 1,000 ML IV SCH (21:38)
[2018-10-05] MEDS: MEPERIDINE 50 MG/1 ML VIAL IV PRN ×7 (01:27→21:57)
[2018-10-05] MEDS: SODIUM CHLORIDE 0.9% 1,000 ML IV SCH ×2 (05:44)
[2018-10-05] MEDS: HEPARIN 5,000 UNIT/1 ML VIAL SUBCUT SCH ×4 (05:44→21:18)
[2018-10-05 06:17] LABS: Basophils % 0.2 % (0.0-0.8); Eosinophils # 0.1 10*3/uL (0.0-0.87); Eosinophils % 2.6 % (0.00-10.9); Hematocrit 38.3 VOL% (42.0-52.0); Hemoglobin 11.7 GM/DL (14.0-18.0); Immature Granulocytes % 0.5 %; Immature Granulocytes Absolute 0.02 #; Lymphocytes # 1.4 10*3/uL (1.4-4.0); Lymphocytes % 32.8 % (21.2-54.2); Mean Corpuscular HGB Conc 30.5 GM/DL (32-36); Mean Corpuscular Hemoglobin 29 PG (27-34); Mean Corpuscular Volume 93.2 FL (87-102); Mean Platelet Volume 10.3 FL (9.6-12.0); Monocytes # 0.4 10*3/uL (0.11-0.8); Monocytes % 9.7 % (1.7-12.7); Neutrophils # 2.3 10*3/uL (1.4-7.4); Neutrophils % 54.2 % (38.7-73.9); Red Blood Count 4.11 MC/CUMM (3.8-5.5); Red Cell Distribution Width 13.8 % (9.3-17.3)
[2018-10-05 06:26] LABS: Platelet Count 87 T/CUMM (130-400); White Blood Count 4.2 T/CUMM (4-12)
[2018-10-05 06:39] LABS: Platelet Estimate Decreased
[2018-10-05 06:40] LABS: Polychromasia Few
[2018-10-05 06:43] LABS: Bilirubin,Total 1.2 MG/DL (0.2-1.0); Calcium 8.2 MG/DL (8.5-10.1)
[2018-10-05] MEDS: PANTOPRAZOLE 40 MG VIAL IV SCH (09:18)
[2018-10-05] MEDS: LACTATED RINGERS 1,000 ML IV SCH (20:00)
[2018-10-06] MEDS: LACTATED RINGERS 1,000 ML IV SCH ×6 (01:50→20:49)
[2018-10-06] MEDS: MEPERIDINE 50 MG/1 ML VIAL IV PRN ×6 (02:03→19:13)
[2018-10-06] MEDS: HEPARIN 5,000 UNIT/1 ML VIAL SUBCUT SCH ×3 (05:08→20:49)
[2018-10-06 06:53] LABS: Basophils % 0.6 % (0.0-0.8); Eosinophils # 0.1 10*3/uL (0.0-0.87); Eosinophils % 3.2 % (0.00-10.9); Hematocrit 38.4 VOL% (42.0-52.0); Hemoglobin 12.4 GM/DL (14.0-18.0); Lymphocytes # 0.8 10*3/uL (1.4-4.0); Lymphocytes % 25.3 % (21.2-54.2); Mean Corpuscular HGB Conc 32.3 GM/DL (32-36); Mean Corpuscular Hemoglobin 29 PG (27-34); Mean Corpuscular Volume 90.4 FL (87-102); Mean Platelet Volume 10.5 FL (9.6-12.0); Monocytes # 0.3 10*3/uL (0.11-0.8); Monocytes % 7.9 % (1.7-12.7); Red Blood Count 4.25 MC/CUMM (3.8-5.5); Red Cell Distribution Width 13.4 % (9.3-17.3); White Blood Count 3.2 T/CUMM (4-12)
[2018-10-06 06:56] LABS: Platelet Count 84 T/CUMM (130-400)
[2018-10-06 07:23] LABS: Albumin 2.8 G/DL (3.4-5.0); Bilirubin,Total 0.5 MG/DL (0.2-1.0); Calcium 8.6 MG/DL (8.5-10.1); Osmolality,Calculated 277.4 MOS/KG (273-304); Potassium 3.8 MMOL/L (3.5-5.1); Total Protein 6.2 G/DL (6.4-8.3)
[2018-10-06 08:29] LABS: Hypochromasia 1+; Microcytosis 1+; Platelet Estimate Decreased
[2018-10-06] MEDS: PANTOPRAZOLE 40 MG VIAL IV SCH (08:43)
[2018-10-06] MEDS: oxyCODONE/ACETAMINOPHEN 5-325 MG TABLET PO PRN (21:57)
[2018-10-07] MEDS: oxyCODONE/ACETAMINOPHEN 5-325 MG TABLET PO PRN (04:21)
[2018-10-07 04:59] LABS: Basophils % 0.4 % (0.0-0.8); Eosinophils # 0.1 10*3/uL (0.0-0.87); Eosinophils % 3.2 % (0.00-10.9); Hematocrit 37.9 VOL% (42.0-52.0); Immature Granulocytes % 0.4 %; Immature Granulocytes Absolute 0.01 #; Lymphocytes # 1.1 10*3/uL (1.4-4.0); Lymphocytes % 39.2 % (21.2-54.2); Mean Corpuscular HGB Conc 31.7 GM/DL (32-36); Mean Corpuscular Hemoglobin 29 PG (27-34); Mean Corpuscular Volume 90.5 FL (87-102); Mean Platelet Volume 10.2 FL (9.6-12.0); Monocytes # 0.3 10*3/uL (0.11-0.8); Monocytes % 9.7 % (1.7-12.7); Neutrophils # 1.3 10*3/uL (1.4-7.4); Neutrophils % 47.1 % (38.7-73.9); Red Blood Count 4.19 MC/CUMM (3.8-5.5); Red Cell Distribution Width 13.2 % (9.3-17.3); White Blood Count 2.8 T/CUMM (4-12)
[2018-10-07 05:02] LABS: Platelet Count 88 T/CUMM (130-400)
[2018-10-07 05:25] LABS: Albumin 2.9 G/DL (3.4-5.0); Bilirubin,Total 0.6 MG/DL (0.2-1.0); Calcium 8.1 MG/DL (8.5-10.1); Osmolality,Calculated 280.1 MOS/KG (273-304); Potassium 3.6 MMOL/L (3.5-5.1); Total Protein 5.9 G/DL (6.4-8.3)
[2018-10-07] MEDS: HEPARIN 5,000 UNIT/1 ML VIAL SUBCUT SCH (06:08)
[2018-10-07] MEDS: LACTATED RINGERS 1,000 ML IV SCH (06:08)
[2018-10-07 07:44] VITALS: BP 136/88
== END 2018-10-07 10:56 | disposition home or self-care (01) | DRG 440 ==
LOC: N.ED 16:39 → N.EDINP 18:49 → SUATTDRO 18:49 → N.EDINP 20:23 → N.5E 20:36
PROVIDERS: ADMIT Emergency Medicine; ATTEND Internal Medicine Infectious Disease

== ENCOUNTER 2019-01-02 17:40 | Inpatient (IN) ==
[2019-01-02] MEDS ORDERED: SODIUM CHLORIDE 0.9% 1,000 ML IV STA (22:25)
[2019-01-02] MEDS ORDERED: MEPERIDINE 50 MG/1 ML VIAL IV STA ×2 (22:26→23:55)
[2019-01-02] MEDS ORDERED: ONDANSETRON 4 MG/2 ML VIAL IV ONE (22:26)
[2019-01-02 23:10] LABS: Basophils # 0.1 10*3/uL (0.0-0.2); Basophils % 0.4 % (0.0-0.8); Eosinophils % 0.2 % (0.00-10.9); Hematocrit 43.1 VOL% (42.0-52.0); Hemoglobin 13.6 GM/DL (14.0-18.0); Immature Granulocytes % 0.5 %; Immature Granulocytes Absolute 0.06 #; Lymphocytes % 8.5 % (21.2-54.2); Mean Corpuscular HGB Conc 31.6 GM/DL (32-36); Mean Corpuscular Hemoglobin 28 PG (27-34); Mean Platelet Volume 9.8 FL (9.6-12.0); Monocytes # 0.9 10*3/uL (0.11-0.8); Monocytes % 7.1 % (1.7-12.7); Neutrophils # 10.2 10*3/uL (1.4-7.4); Neutrophils % 83.3 % (38.7-73.9); Platelet Count 118 T/CUMM (130-400); Red Blood Count 4.79 MC/CUMM (3.8-5.5); White Blood Count 12.2 T/CUMM (4-12)
[2019-01-02 23:49] LABS: Albumin 3.5 G/DL (3.4-5.0); Bilirubin,Total 0.9 MG/DL (0.2-1.0); Calcium 8.2 MG/DL (8.5-10.1); Osmolality,Calculated 283.8 MOS/KG (273-304); Potassium 4.3 MMOL/L (3.5-5.1); Total Protein 6.8 G/DL (6.4-8.3)
[2019-01-03 00:42] LABS: Apearance,Urine CLEAR (Clear); Bilirubin,Urine Negative (Negative); Blood, Urine Negative (Negative); Glucose,Urine (UA) 150 mg/dL (Negative); Hyaline Casts,Urine 1 /LPF (0-3); Ketones,Urine Negative (Negative); Mucus,Urine Occasional /LPF (Occasional); Nitrite,Urine Negative (Negative); Protein,Urine Negative; RBC,Urine 1 /HPF (0-4); Urine Color Yellow (Yellow); WBC,Urine <1 /HPF (0-6)
[2019-01-03] MEDS ORDERED: ONDANSETRON 4 MG/2 ML VIAL IV PRN (01:52)
[2019-01-03] MEDS ORDERED: PROMETHAZINE 25 MG TABLET PO PRN (01:56)
[2019-01-03] MEDS ORDERED: LORazepam 0.5 MG TABLET PO PRN (01:56)
[2019-01-03] MEDS ORDERED: DRONABINOL 2.5 MG CAPSULE PO PRN (01:56)
[2019-01-03] MEDS: SODIUM CHLORIDE 0.9% 1,000 ML IV SCH ×3 (02:58→20:47)
[2019-01-03] MEDS: MEPERIDINE 25 MG/1 ML VIAL IV PRN ×6 (03:05→20:47)
[2019-01-03 05:26] LABS: Basophils % 0.4 % (0.0-0.8); Eosinophils # 0.1 10*3/uL (0.0-0.87); Eosinophils % 1.1 % (0.00-10.9); Hematocrit 39.6 VOL% (42.0-52.0); Hemoglobin 12.5 GM/DL (14.0-18.0); Immature Granulocytes % 0.5 %; Immature Granulocytes Absolute 0.04 #; Lymphocytes # 1.4 10*3/uL (1.4-4.0); Lymphocytes % 17.3 % (21.2-54.2); Mean Corpuscular HGB Conc 31.6 GM/DL (32-36); Mean Corpuscular Hemoglobin 29 PG (27-34); Mean Corpuscular Volume 90.2 FL (87-102); Mean Platelet Volume 9.8 FL (9.6-12.0); Monocytes # 0.6 10*3/uL (0.11-0.8); Monocytes % 7.5 % (1.7-12.7); Neutrophils # 5.8 10*3/uL (1.4-7.4); Neutrophils % 73.2 % (38.7-73.9); Platelet Count 111 T/CUMM (130-400); Red Blood Count 4.39 MC/CUMM (3.8-5.5); Red Cell Distribution Width 13.9 % (9.3-17.3)
[2019-01-03 05:51] LABS: Calcium 7.8 MG/DL (8.5-10.1); Osmolality,Calculated 285.3 MOS/KG (273-304); Potassium 3.8 MMOL/L (3.5-5.1)
[2019-01-03] MEDS: OLANZapine 5 MG TABLET PO SCH (10:08)
[2019-01-03] MEDS: ENOXAPARIN 40 MG/0.4 ML SYRINGE SUBCUT SCH (10:09)
[2019-01-03] MEDS ORDERED: SERTRALINE 100 MG TABLET PO SCH (21:00)
[2019-01-03] MEDS ORDERED: LANSOPRAZOLE ODT 30 MG TABLET PO SCH (21:00)
[2019-01-04] MEDS: MEPERIDINE 25 MG/1 ML VIAL IV PRN ×4 (01:31→11:58)
[2019-01-04 05:24] LABS: Calcium 8.2 MG/DL (8.5-10.1); Osmolality,Calculated 284.1 MOS/KG (273-304)
[2019-01-04 05:28] LABS: Basophils % 0.4 % (0.0-0.8); Eosinophils # 0.1 10*3/uL (0.0-0.87); Eosinophils % 1.6 % (0.00-10.9); Hematocrit 41.2 VOL% (42.0-52.0); Immature Granulocytes % 0.4 %; Immature Granulocytes Absolute 0.02 #; Lymphocytes # 1.5 10*3/uL (1.4-4.0); Lymphocytes % 27.5 % (21.2-54.2); Mean Corpuscular HGB Conc 31.6 GM/DL (32-36); Mean Corpuscular Hemoglobin 29 PG (27-34); Mean Corpuscular Volume 90.5 FL (87-102); Mean Platelet Volume 10.2 FL (9.6-12.0); Monocytes # 0.5 10*3/uL (0.11-0.8); Monocytes % 8.7 % (1.7-12.7); Neutrophils # 3.4 10*3/uL (1.4-7.4); Neutrophils % 61.4 % (38.7-73.9); Platelet Count 112 T/CUMM (130-400); Red Blood Count 4.55 MC/CUMM (3.8-5.5); Red Cell Distribution Width 13.6 % (9.3-17.3); White Blood Count 5.5 T/CUMM (4-12)
[2019-01-04] MEDS: SODIUM CHLORIDE 0.9% 1,000 ML IV SCH (06:59)
[2019-01-04] MEDS: OLANZapine 5 MG TABLET PO SCH (08:38)
[2019-01-04] MEDS: ENOXAPARIN 40 MG/0.4 ML SYRINGE SUBCUT SCH (10:04)
[2019-01-04 11:37] VITALS: BP 112/71
== END 2019-01-04 13:41 | disposition home or self-care (01) | DRG 440 ==
LOC: N.ED 17:40 → N.EDINP 01-03 01:10 → SUATTDRO 01-03 01:10 → N.2E 01-03 02:09
PROVIDERS: ADMIT Internal Medicine; ATTEND Internal Medicine